=== PATIENT | male | born 1955 | race Caucasian/White ===

== ENCOUNTER 2024-06-27 09:23 | Outpatient (REF) | payer MEDICAID, SELFPAY ==
--- OUTSIDE RECORDS SUMMARY | 2024-06-27 10:52 | XMS_ITS | Encounter Summary ---
Author Organization [employer] Address [address] [facility] 7[address] [place] [address] Care Team Providers Care Audio/Visual Manager Name Role Phone Anson Asencio MD Primary Care Prov ider Encounter Details Date Type Department Care Team (Latest Contact Info) Description 06/13/2024 Travel Social History Tobacco Use Types Packs/Day Years Used Date Smoking Tobacco: Never Smokeless Tobacco: Never Alcohol Use Standard Drinks/Week Comments Yes 0 (1 standard drink = 0.6 oz pur e alcohol) beer social Depression Answer Date Recorded Patient Health Questionnaire-9 Score 0 05/22/2024 Patient Health Questionnaire-9 Score 0 05/22/2024 Last PHQ-9: Questionnaire Data Not on file 0 05/22/2024 Housing Stability Answer Date Recorded What is your housing situation today? I have desean almanza 05/22/[address] you li ve. Do you have problems with any of the following? None of the above 05/22/2024 Food Insecurity Answer Date Recorded Within the past 12 months, y ou worried that your food would run out before you got money to buy more: Never True 05/22/2024 Within the past 12 months,th e food you bought just didn't last and you didn't have enough money to get more: Never True Transportation Answer Date Recorded In the past 12 months, has l ack of transportation kept you from medical appts, meetings, work or from getting things needed for daily living? No 05/22/2024 Utilities Answer Date Recorded In the past 12 months, has t he electric, gas, oil or water company threatened to shut off services in your home? No 05/22/2024 Depression Answer Date Recorded Patient Health Questionnaire-2 Score 0 05/22/2024 Internet Access Answer Date Recorded Internet Access Q1 Yes 05/22/2024 Internet Access Q2 Not on file 05/22/2024 Sex and Gender Information Value Date Recorded Sex Assigned at Male 09/19/2023 10:57 AM EDT Legal Sex Female 10:50 AM EDT Gender Identity Male 09/19/2023 10:57 AM EDT Sexual Orientation Straight 09/19/2023 10 :57 AM EDT documented as of this encounter Plan of Treatment Upcoming Encounters Date Type Department Care Team (Late st Contact Info) Description 09/10/2024 8:30 AM EDT Telemedicine [facility] MED & PEDS [address] [place] [address] Anson Asencio MD [address] [place] [address] documented as of this encounter Visit Diagnoses Not on filedocumented in this encounter Additional Health Concerns Assessment Noted Time PHQ-9 Depression Total Score: 0 05/22/19 8:54 AM EST documented as of this encounter Care Teams Audio/Visual Manager Relationship Specialty Start Date End Date Anson Asencio MD [address] [place] [address] PCP - General Internal Medicine 05/22/24 documented as of this encounter
--- OUTSIDE RECORDS SUMMARY | 2024-06-27 10:52 | XMS_ITS | Encounter Summary ---
Author Organization [employer] Address [address] [facility] 7 [place] [address] Care Team Providers Care Network Coordinator Name Role Phone Anson Asencio MD Primary Care Prov ider Reason for Visit * Reason Onset Date Comments Chart Prep 06/12/2024 Encounter Details Date Type Department Care Team ([facility] st Contact Info) Description 06/12/2024 Telephone [facility] MED & PEDS [address] [place] [address] Anson Asencio MD [address] [place] [address] Chart Prep Social History Tobacco Use Types Packs/Day Years [...] AM EDT documented as of this encounter Miscellaneous Notes * Telephone Encounter - Pratima Durant [place] - 06/12/2024 4:06 PM EST Chart Prep Labs: pending Images: not applicable Vaccines due: yes Referrals: n/a Screenings: n/a Overdue care gaps: Oral Health, disability screening documented in this encounter Plan of Treatment Upcoming Encounters Date Type Department Care Team (Late st Contact Info) Description 09/10/2024 8:30 AM EDT Telemedicine [facility] MED & PEDS [address] [place] [address] Anson Asencio MD [address] [place] [address] documented as of this encounter Visit Diagnoses Not on filedocumented in this encounter Additional Health Concerns Assessment Noted Time PHQ-9 Depression Total Score: 0 05/22/19 8:54 AM EST documented as of this encounter Care Teams Network Coordinator Relationship Specialty Start Date End Date Anson Asencio MD [address] [place] [address] PCP - General Internal Medicine 05/22/24 documented as of this encounter
--- OUTSIDE RECORDS SUMMARY | 2024-06-27 10:52 | XMS_ITS | Encounter Summary ---
Author Organization [employer] Address [address] [facility] 7 [place] [address] Care Team Providers Care Assistant Manager Trainee Name Role Phone Anson Asencio MD Primary Care Prov ider Reason for Visit * Reason Comments Pre-visit Planning SDOH was completed o n 05/22/2024 Encounter Details Date Type Department Care Team ([facility] st Contact Info) Description 06/06/2024 Patient Outreach [facility] CH[facility] MED & PEDS [address] [place], [place] [phone] Anson Asencio MD [address] [place] [address] Pre-visit Planning (SDOH was completed on 05/22/2024) Social History Tobacco Use Types Packs/Day Years [...] AM EDT documented as of this encounter Progress Notes * Stephanie To - 06/06/2024 11:28 AM EST CC Stephanie Vazquez placed successful outbound call to patient for pre-visit planning. Patient name and confirmed. Patient confirms appt date and time, and has transportation arrangements. Biggest concern for appointment at this time is patient experiencing chest pains. Appropriate screenings completed in anticipation of appointment. documented in this encounter Plan of Treatment Upcoming Encounters Date Type Department Care Team ([facility] st Contact Info) Description 09/10/2024 8:30 AM EDT Telemedicine [facility] MED & PEDS [address] [place] [address] Anson Asencio MD [address] [place] [address] documented as of this encounter Visit Diagnoses Not on filedocumented in this encounter Additional Health Concerns Assessment Noted Time PHQ-9 Depression Total Score: 0 05/22/19 25 8:54 AM EST documented as of this encounter Care Teams Assistant Manager Trainee Relationship Specialty Start Date End Date Anson Asencio MD [address] [place] [address] PCP - General Internal Medicine 05/22/24 documented as of this encounter
--- OUTSIDE RECORDS SUMMARY | 2024-06-27 10:52 | XMS_ITS | Clinical Summary ---
Author Organization [facility] Address [address] [place] [address] Care Team Providers Care Hvac Designer Name Role Phone Richa Garcia Primary Care Provider [phone] Source Comments PLEASE NOTE, if this patient is a minor, it may be UNLAWFUL to discuss sensitive information that is contained in these records (such as FAMILY PLANNING, MENTAL HEALTH or SUBSTANCE ABUSE) with the minor patient's parent or other person without the patient's specific authorization.[facility] Social History Tobacco Use Types Packs/Day Years Used Date Smoking Tobacco: Never Assessed Sex and Gender Information Value Date Recorded Sex Assigned at Not on file Legal Sex Male 12:18 PM PDT Gender Identity Not on file Sexual Orientation Not on file Plan of Treatment Upcoming Encounters Date Type Department Care Team (Late st Contact Info) Description 08/15/2024 1:40 PM EDT Office Visit [facility] [address] [place] [phone] Dajuan Montiel PA-C [address] [facility] [place] [address] Health Maintenance Due Date Last Done Comments Diabetes Screening 1955 Hepatitis C Screening 1955 Lipid Screening 1955 Tobacco Screening 1955 Hypertension Screening (#1) 10/03/1973 Imm-DTaP/Tdap/Td (1 - Tdap) 10/03/1974 CT Colonography 10/03/2000 Colonoscopy 10/03/2000 Colorectal Cancer Screening 10/03/2000 FIT/gFOBT 10/03/2000 Fecal DNA 10/03/2000 Flexible Sigmoidoscopy 10/03/2000 Imm-Pneumococcal 65+ (1 of 1 - PCV) 10/03/2005 Imm-Zoster, Recombinant (1 of 2) 10/03/2005 Abdominal Aortic Aneurysm Screening 10/03/2020 Falls Prevention 10/03/2020 [id number]-01 ( season) 2024 Imm-Influenza (#1) 2024 Alcohol and Drug Screen 05/02/2024 Depression Annual Screen 05/02/2024 Insurance [place] Care Teams Hvac Designer Relationship Specialty Start Date End Date Richa Garcia PA [address] [place] [address] PCP - General Primary Care 05/17/24
--- OUTSIDE RECORDS SUMMARY | 2024-06-27 10:52 | XMS_ITS | Clinical Summary ---
Author Organization [employer] Address [address] [facility] [address] [place] [address] Care Team Providers Care Pattern Illustrator Name Role Phone Anson Asencio MD Primary Care Prov ider Allergies No known active allergies Medications Blood Pressure kit 1 kit Once per day. 1 kit 05/22/2024 Active cloNIDine (Catapres) 0.1 MG tablet Take 0.1 mg by mouth 2 times daily. Active NIFEdipine CC (Adalat CC) 60 MG 24 hr tablet Take 60 mg by mouth before breakfast. Do not crush, chew, or split. Active aspirin 81 MG EC tablet Take 81 mg by mouth Once per day. Active olmesartan-hydro CHLOROthiazide (BENIcar HCT) 40-12.5 MG tablet Take 1 tablet by mouth Once per day. Active Active Problems Problem Noted Date Diagnosed Date Atypical chest pain 06/13/2024 Assessment & Plan (06/13/2024 12:54 PM EST): Patient refers has been complaining of chest pain episode for more than 2 years, has been evaluated by cardiology before without any major findings, EKG performed today remarkable for sinus bradycardia, will order a stress test Encounter for medical examination to establish c are 05/22/2024 Assessment & Plan (05/22/2024 9:20 AM EST): Last pcp follow up >2 year Er visit in the past year: hypertension x2 Hospitalization: hypertension admitted x2 day on September,hx: hypertension, palpitation Pshx: appendectomy 1969 All: - Meds: clonidine 0.1mg BID, nifedipine 60mg, olmesartan/hydrochlorothiazide 40/12.5mg, gbs33ip Screening for colon cancer 05/22/2024 Assessment & Plan (05/22/2024 9:25 AM EST): Will send cologuard risk vs benefits discussed Primary hypertension 05/22/2024 Assessment & Plan (06/13/2024 11:04 AM EST): Controlled, keep low sodium diet and exercise as tolerated, keep bp log, will send new bp machine, follow up in 3 months Assessment & Plan (05/22/2024 9:27 AM EST): Will order bp machine, continue current treatment, low sodium diet encouraged, follow up in june Encounters Date Type Department Care Team Description 06/13/2024 10:30 AM EST Office Visit [facility] MED & PEDS [address] [place] [address] Anson Asencio MD Primary hypertension (Primary Dx); Encounter for immunization; Atypical chest pain 06/13/2024 Travel 06/12/2024 Telephone [facility] MED & PEDS [address] [place] [address] Anson Asencio MD Chart Prep 06/06/2024 Patient Outreach [facility] MED & PEDS [address] [place] [address] Anson Asencio MD Pre-visit Planning (SDOH was completed on 05/22/2024) 05/22/2024 9:00 AM EST Telemedicine [facility] MED & PEDS [address] [place] [address] Anson Asencio MD Encounter for medical examination to establish care (Primary Dx); Screening for colon cancer; Primary hypertension 05/22/2024 Travel 04/18/2024 Telephone [facility] MEDICINE [address] [place] [address] Anson Asencio MD New pt appt 03/28/2024 Telephone [facility] MED & PEDS [address] [place] [address] Elisa Richards MD new pt request from Last 3 Months Immunizations Name Administration Dates Next Due Influenza, seasonal, injectable, preservative fr ee 06/13/2024 Pneumococcal Conjugate PCV 20 06/13/2024 Tdap 06/13/2024 Family History Medical History Relation Name Comments Cancer Brother Hypotension Brother Hypertension Father Pneumonia Father Hypertension Mother Relation Name Status Comments Brother Father Mother Social History Tobacco Use Types Packs/Day Years Used Date Smoking Tobacco: Never Smokeless Tobacco: Never Tobacco Cessation:Counseling Given: Not Answered Alcohol Use Standard Drinks/Week Comments Yes 0 [...] Orientation Straight 09/19/2023 10 :57 AM EDT Last Filed Vital Signs Vital Sign Reading Time Taken Comments Blood Pressure 134/80 06/13/2024 10:39 AM EST Pulse 82 06/13/2024 10:39 AM EST Temperature 36.7 ??C (98.1 ??F) 06/13/2024 1 0:39 AM EST Respiratory Rate 16 06/13/2024 10:3 9 AM EST Oxygen Saturation - - Inhaled Oxygen Concentration - - Weight 83.4 kg (183 lb 12.8 oz) 025 10:39 AM EST Height 172.7 cm (5' 8 ) 06/13/2024 10:3 9 AM EST Body Mass Index 27.95 06/13/2024 10:39 AM EST Plan of Treatment Upcoming Encounters Date Type Department Care Team (Late st Contact Info) Description 09/10/2024 8:30 AM EDT Telemedicine [facility] CHC MED & PEDS [address] [place], [place] [phone] Anson Asencio MD [address] [place], [place] [phone] Health Maintenance Due Date Last Done Comments CT Colonography 1955 Colonoscopy 1955 Dental Oral Exam 1955 Dental Prophylaxis 1955 Dental X-Ray: Bitewings 1955 Dental X-Ray: Full Mouth 1955 FIT 1955 FOBT 1955 Lipid Panel 1955 Sigmoidoscopy 1955 Hepatitis C Screening 10/03/1973 Zoster Vaccines (1 of 2) 10/03/2005 COVID-19 Vaccine (2023-2 5 season) 2024 Alcohol/Substance Use Screening 05/22/2025 05/22/2024 Depression Screening 05/22/2025 05/22/2024, 05/22/2024 SDOH Screening 05/22/2025 05/22/2024 Tobacco Screening 05/22/2025 05/22/2024 Colorectal Cancer Screening 06/06/2027 FIT DNA/Cologuard 06/06/2027 06/06/2024 RSV Patients and Patients Aged 60 years or older (1 - 1-dose 75+ series) 10/03/2030 DTaP/Tdap/Td Vaccines (2 - T d or Tdap) 06/13/2034 06/13/2024 Influenza Vaccine Completed 06/13/2024 Pneumococcal Vaccine: 50+ Years Completed 06/13/2024 HIB Vaccines Aged Out No longer eligi ble based on patient's age to complete this topic HPV Vaccines Aged Out No longer eligi ble based on patient's age to complete this topic Hepatitis A Vaccines Aged Out No long er eligible based on patient's age to complete this topic Hepatitis B Vaccines Aged Out No long er eligible based on patient's age to complete this topic IPV Vaccines Aged Out No longer eligi ble based on patient's age to complete this topic Meningococcal Vaccine Aged Out No dallin jarred eligible based on patient's age to complete this topic RSV under 20 months Aged Out No longe r eligible based on patient's age to complete this topic Rotavirus Vaccines Aged Out No longer eligible based on patient's age to complete this topic Procedures Procedure Name Priority Date/Time Associated Diagnosis Comments ECG 12-LEAD Routine 06/13/2024 12:56 PM EST Atypical chest pain LAB COLOGUARD?? COLON CANCER SCREEN Routine 06/06/2024 10:00 AM EST Screening for colon cancer from Last 3 Months Results * ECG 12 lead (06/13/2024 12:56 PM EST) Narrative Anson Asencio MD - 06/13/2024 12:56 PM EST Sinus bradycardia HR: 52 UT: 201 Qtc: 396 us Anson Roy MD ECG ORDERABLES Fi nal Result * Cologuard?? colon cancer screening (06/06/2024 10:00 AM EST) Cologuard Result Negative Negative 06/15/19 25 7:19 PM EST [facility] (CLIA #:[id number]) Comment: NEGATIVE TEST RESULT. A negative Cologuard result indicates a low likelihood that a colorectal cancer (CRC) or advanced adenoma (adenomatous polyps with more advanced pre-malignant features) ??is present. The chance that a person with a negative Cologuard test has a colorectal cancer is less than 1 in 1500 (negative predictive value >99.9%) or has an ??advanced adenoma is less than ??5.3% (negative predictive value 94.7%). These data are based on a prospective cross-sectional study of 10,000 individuals at average risk for colorectal cancer who were screened with both Cologuard and colonoscopy. (Lyn Nuñez, N Engl J Med 2014;370(14):1286- 1297) The normal value (reference range) for this assay is negative. COLOGUARD RE-SCREENING RECOMMENDATION: Periodic colorectal cancer screening is an important part of preventive healthcare for asymptomatic individuals at average risk for colorectal cancer. ??Following a negative Cologuard result, the [place] [employer] Society and U.S. Multi-Society Task Force screening guidelines recommend a Cologuard re-screening interval of 3 years. References: [place] [employer] Guideline for Colorectal Cancer Screening: https://www.cancer.org/cancer/ahhaw-yzbjqj-sbiwsb/phjwanyvu-sskixjjpq-nljeivn/ac s-rec ommendations.html.; Andres DK, Urban LOPEZ, Fransisco AragonK, Colorectal Cancer Screening: Recommendations for Physicians and Patients from the U.S. Multi-Society Task Force on Colorectal Cancer Screening , Am J Gastroenterology 2017; 112:6501-5243. TEST DESCRIPTION: Composite algorithmic analysis of stool DNA-biomarkers with hemoglobin immunoassay. ?? Quantitative values of individual biomarkers are not reportable and are not associated with individual biomarker result reference ranges. Cologuard is intended for colorectal cancer screening of adults of either sex, 45 years or older, who are at average-risk for colorectal cancer (CRC). Cologuard has been approved for use by the U.S. FDA. The performance of Cologuard was established in a cross sectional study of average-risk adults aged 50-84. Cologuard performance in patients ages 45 to 49 years was estimated by sub-group analysis of near-age groups. Colonoscopies performed for a positive result may find as the most clinically significant lesion: colorectal cancer [4.0%], advanced adenoma (including sessile serrated polyps greater than or equal to 1cm diameter) [20%] or non- advanced adenoma [31%]; or no colorectal neoplasia [45%]. These estimates are derived from a prospective cross-sectional screening study of 10,000 individuals at average risk for colorectal cancer who were screened with both Cologuard and colonoscopy. (Imperiale T. et al, N Engl J Med 2014;370(14):0744-7963.) Cologuard may produce a false negative or false positive result (no colorectal cancer or precancerous polyp present at colonoscopy follow up). A negative Cologuard test result does not guarantee the absence of CRC or advanced adenoma (pre-cancer). The current Cologuard screening interval is every 3 years. ([place] [employer] and U.S. Multi-Society Task Force). Cologuard performance data in a 10,000 patient pivotal study using colonoscopy as the reference method can be accessed at the following location: www.[employer].com/results. Additional description of the Cologuard test process, warnings and precautions can be found at www.ThinkGridoguard.com. Stool specimen (specimen) 06/06/2024 10:00 AM EST 06/07/2024 2:04 PM EST Anson Roy MD LAB MOLECULAR DIAG NOSTICS ORDERABLES Final Result [facility] (CLIA #:[id number]) [address] [place] [address], from Last 3 Months Insurance [facility] FULL DENTAL - [facility] FULL (MEDICAID) [place] ADULT Care Teams Pattern Illustrator Relationship Specialty Start Date End Date Anson Asencio MD [address] [place] [address] PCP - General Internal Medicine 05/22/24
--- OUTSIDE RECORDS SUMMARY | 2024-06-27 10:52 | XMS_ITS | Encounter Summary ---
Author Organization [employer] Address [address] [place] [address] [address] [place] [address] Care Team Providers Care Fixture Repairer Fabricator Name Role Phone Anson Asencio MD Primary Care Prov ider Reason for Referral * Imaging (Routine) - Authorized Specialty Diagnoses / Procedures Referred By Contac t Referred To Contact Diagnoses Atypical chest pain Procedures Stress test with myocardial perfusion Anson Asencio MD [address] [place] [address] Phone: tel: fax: [address] Phone: tel: fax: Referral ID Status Reason Start Date Expiration Date V isits Requested Visits Authorized [id number] Authorized 06/13/2024 06/13/2025 3 3 Encounter Details Date Type Department Care Team (Late st Contact Info) Description 06/13/2024 10:30 AM EST Office Visit [facility] [address] [place] [address] Anson Asencio MD [address] [place] [address] Primary hypertension (Primary Dx); Encounter for immunization; Atypical chest pain Social History Tobacco Use Types Packs/Day Years [...] AM EDT documented as of this encounter Last Filed Vital Signs Vital Sign Reading [...] Mass Index 27.95 06/13/2024 10:39 AM EST documented in this encounter Progress Notes * Anson Roy MD - 06/13/2024 10:30 AM EST Subjective Patient ID: Eriberto Mullins is a 68 y.o. adult who presents for No chief complaint on file.. Hypertension This is a chronic problem. Pertinent negatives include no chest pain, headaches, palpitations, peripheral edema or shortness of breath. Review of Systems Respiratory: Negative for shortness of breath. Cardiovascular: Negative for chest pain and palpitations. Neurological: Negative for headaches. Objective Physical Exam Constitutional: Appearance: Normal appearance. HENT: Right Ear: Tympanic membrane, ear canal and external ear normal. There is no impacted cerumen. Left Ear: Tympanic membrane, ear canal and external ear normal. There is no impacted cerumen. Cardiovascular: Rate and Rhythm: Normal rate and regular rhythm. Heart sounds: No murmur heard. Pulmonary: Effort: Pulmonary effort is normal. No respiratory distress. Breath sounds: No stridor. No wheezing or rhonchi. Abdominal: General: Abdomen is flat. There is no distension. Palpations: There is no mass. Tenderness: There is no abdominal tenderness. There is no guarding or rebound. Hernia: No hernia is present. Musculoskeletal: General: No swelling or tenderness. Normal range of motion. Cervical back: Normal range of motion. No rigidity or tenderness. Lymphadenopathy: Cervical: No cervical adenopathy. Skin: General: Skin is warm. Coloration: Skin is not jaundiced or pale. Neurological: General: No focal deficit present. Mental Status: He is alert and oriented to person, place, and time. Psychiatric: Mood and Affect: Mood normal. Behavior: Behavior normal. Assessment/Plan Problem List Items Addressed This Visit Primary hypertension - Primary Controlled, keep low sodium diet and exercise as tolerated, keep bp log, will send new bp machine, follow up in 3 months Relevant Orders CBC auto differential Comprehensive Metabolic Panel Lipid Panel, Standard TSH W/Reflex to FT4 Hemoglobin A1c Hepatitis C Antibody with Reflex to HCV, RNA, Quantitative, Real-Time PCR HIV-1/2 Antigen and Antibodies, Fourth Generation, with Reflexes Atypical chest pain Patient refers has been complaining of chest pain episode for more than 2 years, has been evaluatedby cardiology before without any major findings, EKG performed today remarkable for sinus bradycardia, will order a stress test Other Visit Diagnoses Encounter for immunization Relevant Orders FLU VACCINE TRIVALENT (Fluarix) 6 mo + (Completed) PCV-20 VACCINE 6 wks + (Completed) TDAP VACCINE 7 yrs + (Completed) documented in this encounter Miscellaneous Notes * Assessment & Plan Note - Anson Roy MD - 06/13/2024 12:54 PM ESTAssociated Problem(s): Atypical chest pain Patient refers has been complaining of chest pain episode for more than 2 years, has been evaluatedby cardiology before without any major findings, EKG performed today remarkable for sinus bradycardia, will order a stress test * Assessment & Plan Note - Anson Roy MD - 06/13/2024 11:04 AM ESTAssociated Problem(s): Primary hypertension Controlled, keep low sodium diet and exercise as tolerated, keep bp log, will send new bp machine, follow up in 3 months documented in this encounter Plan of Treatment Upcoming Encounters Date Type Department Care Team (Late st Contact Info) Description 09/10/2024 8:30 AM EDT Telemedicine [facility] [address] [place] [address] Anson Asencio MD [address] [place] [address] Scheduled Orders Name Type Priority Associated Diagnoses Orde r Schedule CBC auto differential Lab Routine Primary hypertension Expected: 06/13/2024 (Approximate), Expires: 06/13/2025 Comprehensive Metabolic Panel Lab Routine Primary hypertension Expected: 06/13/2024 (Approximate), Expires: 06/13/2025 Lipid Panel, Standard Lab Routine Primary hypertension Expected: 06/13/2024 (Approximate), Expires: 06/13/2025 TSH W/Reflex to FT4 Lab Routine Primary hypertension Expected: 06/13/2024 (Approximate), Expires: 06/13/2025 Hemoglobin A1c Lab Routine Primary hypertension Expected: 06/13/2024 (Approximate), Expires: 06/13/2025 Hepatitis C Antibody with Reflex to HCV, RNA, Quantitative, Real-Time PCR Lab Routine Primary hypertension Expected: 06/13/2024, Expires: 06/13/2025 HIV-1/2 Antigen and Antibodies, Fourth Generation, with Reflexes Lab Routine Primary hypertension Expected: 06/13/2024 (Approximate), Expires: 06/13/2025 documented as of this encounter Procedures Procedure Name Priority Date/Time Associated Diagnosis Comments ECG 12-LEAD Routine 06/13/2024 12:56 PM EST Atypical chest pain documented in this encounter Results * ECG 12 lead (06/13/2024 12:56 PM EST) Narrative Anson Asencio MD - 06/13/2024 12:56 PM EST Sinus bradycardia HR: 52 CT: 201 Qtc: 396 us Anson Roy MD ECG ORDERABLES Fi nal Result documented in this encounter Visit Diagnoses Diagnosis Primary hypertension- Primary Unspecified essential hypertension Encounter for immunization Atypical chest pain Other chest pain documented in this encounter Additional Health Concerns Assessment Noted Time PHQ-9 Depression Total Score: 0 05/22/19 8:54 AM EST documented as of this encounter Care Teams Fixture Repairer Fabricator Relationship Specialty Start Date End Date Anson Asencio MD [address] [place] [phone] PCP - General Internal Medicine 05/22/24 documented as of this encounter
[2024-06-27 14:25] LABS: MANUAL DIFF FLAG NO
[2024-06-27 14:28] LABS: Basophils Percent Auto 0.7 % (0-2); Eosinophils Absolute Auto 0.1 X10*3/uL (0.0-0.4); Hematocrit 40.5 % (42.0-52.0); Hemoglobin 13.6 g/dl (14.0-18.0); Imm Gran Abs Auto 0.01 X10*3/uL (0.00-0.03); Imm Gran Pct Auto 0.2 % (0.0-0.4); Lymphocytes Percent Auto 44.6 % (20-40); Mean Corpuscular HGB Conc 33.6 g/dl (31.0-36.0); Mean Corpuscular Hemoglobin 31.3 pg (27.0-33.0); Mean Corpuscular Volume 93.3 fL (80.0-98.0); Mean Platelet Volume 10.1 fL (9.4-12.4); Monocytes Absolute Auto 0.3 X10*3/uL (0.1-1.2); Monocytes Percent Auto 7.3 % (2-11); Neutrophils Percent Auto 45.2 % (45-73); Platelet Count 214 X10*3/uL (160-400); Red Blood Count 4.34 X10*6/uL (4.60-5.80); Red Cell Distribution Width 11.6 % (11.0-16.0); White Blood Count 4.5 X10*3/uL (4.8-10.8)
[2024-06-27 14:40] LABS: Estimated Average Glucose 111 mg/dL; Hemoglobin A1c % 5.5 % (<6.0)
[2024-06-27 14:52] LABS: Alanine Aminotransferase 21 U/L (0-40); Albumin Level 4.3 g/dL (3.5-5.0); Alkaline Phosphatase 58 U/L (39-117); Anion Gap 11 (12-20); Aspartate Amino Transferase 30 U/L (5-37); Bilirubin Total 0.8 mg/dL (0.0-1.0); Blood Urea Nitrogen 20 mg/dL (9-16); Calcium 9.5 mg/dL (8.4-10.2); Carbon Dioxide 28 mmol/L (22-29); Chloride 105 mmol/L (96-108); Cholesterol 246 mg/dL (<200); Estimated Glomerular Filt Rate > 60; Glucose Random 93 mg/dL (60-115); HDL Cholesterol 54 mg/dL (>40); LDL Cholesterol Calculated 158 mg/dL (<100); Potassium 3.9 mmol/L (3.3-5.1); Sodium 140 mmol/L (135-145); Total Protein 7.3 g/dL (6.5-8.0); Triglycerides 171 mg/dL (<150)
[2024-06-27 15:07] LABS: TSH reflex Free T4 2.77 uIU/mL (0.32-4.0)
[2024-06-28 08:39] LABS: HIV AB/AG Nonreactive (Nonreactive); HIV Num 1 0.06 S/CO (0.00-0.99); ~Hepatitis C Antibody Nonreactive (Nonreactive)
== END 2024-06-27 09:24 | disposition home or self-care (01) ==
LOC: HO.CHCLDS 09:23
PROVIDERS: Visit Provider Internal Medicine
DX: I10 Essential (primary) hypertension (principal); Z11.59 Encounter for screening for other viral diseases
CPT/HCPCS: 36415; 80053; 80061; 83036; 84443; 85025; 86803; 87389

== ENCOUNTER 2024-09-12 15:29 | Outpatient (REF) | payer MEDICAID, SELFPAY ==
--- OUTSIDE RECORDS SUMMARY | 2024-09-12 15:31 | XMS_ITS | Clinical Summary ---
Author Organization [employer] Address [address] [facility] [address] [place] [address] Care Team Providers Care Dynamics Ax Technical Architect Name Role Phone Anson Asencio MD Primary Care Prov ider Allergies No known active allergies Medications Blood Pressure kit 1 kit Once per day. 1 kit 5 Active aspirin 81 MG EC tablet Take 1 tablet (81 mg) by mouth Once per day. 90 tablet 3 5 07/13/19 26 Active cloNIDine (Catapres) 0.1 MG tablet Take 1 tablet (0.1 mg) by mouth 2 times daily. 180 tablet 3 5 07/13/19 26 Active NIFEdipine CC (Adalat CC) 60 MG 24 hr tablet Take 1 tablet (60 mg) by mouth before breakfast. Do not crush, chew, or split. 90 tablet 3 5 07/13/19 26 Active olmesartan-hydr oCHLOROthiazide (BENIcar HCT) 40-12.5 MG tablet Take 1 tablet by mouth Once per day. 90 tablet 3 5 07/13/19 26 Active Ketotifen Fumarate 0.035 % solution Administer 1 drop into affected eye(s) 3 times daily. 10 mL 3 5 Active polyvinyl alcohol (Liquifilm Tears) 1.4 % ophthalmic solutionIndicat ions:Dry eyes, bilateral Administer 1 drop into both eyes if needed for dry eyes. 15 mL 5 5 Active tadalafil (Cialis) 10 MG tablet Take 1 tablet (10 mg) by mouth if needed each day for erectile dysfunction. 30 tablet 1 5 11/11/19 25 Active sulfamethoxazol e-trimethoprim (Bactrim DS) 800-160 MG tabletIndicatio ns:Urinary frequency,Noctu ramya Take 1 tablet by mouth 2 times daily for 10 days. 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 09/11/2024 Assessment & Plan (09/11/2024 9:06 AM EDT): Will start on cialis, risk vs benefits discussed, call back if not working or getting side effects Atypical chest pain 06/13/2024 Assessment & Plan [...] clonidine 0.1mg BID, nifedipine 60mg, olmesartan/hydrochlorothiazide 40/12.5mg, [id number] Screening for colon cancer 05/22/2024 Assessment & Plan (05/22/2024 9:25 AM EST): Will send cologuard risk vs benefits discussed Primary hypertension 05/22/2024 Assessment & Plan (09/11/2024 9:05 AM EDT): Controlled, keep low sodium diet and exercise as tolerated, keep bp log, follow up in 3 months Assessment & Plan (06/13/2024 11:04 AM EST): Controlled, keep low sodium diet and exercise as tolerated, keep bp log, will send new bp machine, follow up in 3 months Assessment & Plan (05/22/2024 9:27 AM EST): Will order bp machine, continue current treatment, low sodium diet encouraged, follow up in june Encounters Date Type Department Care Team Description 09/12/2024 2:20 PM EDT Office Visit [facility] [address] [place] [address] Elisa Richards MD Urinary frequency (Primary Dx); Nocturia 09/12/2024 Travel 09/11/2024 8:30 AM EDT Telemedicine [facility] [address] [place] [address] Anson Asencio MD Primary hypertension (Primary Dx); Combined arterial insufficiency and corporo-venous occlusive erectile dysfunction 09/11/[address] [address] Anson Asencio MD Nurse Triage 09/11/2024 Travel 09/10/2024 Travel 09/06/2024 1:00 PM EDT Office Visit [facility] [address] [place] [address] Tarka, Nanette, OD Hypermetropia, bilateral (Primary Dx); Dry eyes, bilateral; Pterygium of left eye; Combined forms of age-related cataract of both eyes 09/06/2024 Travel 08/31/2024 9:40 AM EDT Office Visit [facility] [address] [place] [address] Yaneli Cole MD Blurred vision, bilateral (Primary Dx); Central pterygium of left eye 08/31/2024 Travel 08/02/2024 Telephone [facility] [address] [place] [address] Anson Asencio MD Referral 08/01/2024 Telephone [facility] [address] [place] [address] Anson Asencio MD 08/01/2024 Travel 07/31/2024 Telephone [facility] [address] [place] [address] Anson Asencio MD chart prep 07/18/2024 Orders Only [facility] [address] [place] [address] Anson Asencio MD 07/10/2024 Refill [facility] [address] [place] [address] Anson Asencio MD from Last 3 Months Immunizations Immunization Administration Dates Next Due Influenza, seasonal, injectable, preservative fr ee 06/13/2024 Pneumococcal Conjugate PCV 20 06/13/2024 Tdap 06/13/2024 Zoster, Recombinant 08/31/2024,06/27/2024 Family History Medical History Relation Name Comments [...] Sign Reading Time Taken Comments Blood Pressure 143/86 09/12/2024 2:08 PM EDT Pulse 68 09/12/2024 2:08 PM EDT Temperature 36.8 ??C (98.3 ??F) 09/12/2024 2:08 PM ED T Respiratory Rate 16 09/12/2024 2:08 PM EDT Oxygen Saturation 98% 09/12/2024 2:08 PM EDT Inhaled Oxygen Concentration - - Weight 87.1 kg (192 lb) 09/12/2024 2:08 PM EDT Height 172.7 cm (5' 8 ) 09/12/2024 2:08 PM EDT Body Mass Index 29.19 09/12/2024 2:08 PM EDT Plan of Treatment Upcoming Encounters Date Type Department Care Team (Late st Contact Info) Description 12/12/2024 9:30 AM EDT Telemedicine [facility] [address] [place] [address] Anson Asencio MD [address] [place] [address] Health Maintenance Due Date Last Done Comments CT Colonography 1955 Colonoscopy 1955 Dental Oral Exam 1955 Dental Prophylaxis 1955 Dental X-Ray: Bitewings 1955 Dental X-Ray: Full Mouth 1955 FIT 1955 FOBT 1955 Sigmoidoscopy 1955 COVID-19 Vaccine (2023-2 5 season) 2024 Alcohol/Substance Use Screening 05/22/2025 05/22/2024 Depression Screening 05/22/2025 05/22/2024, 05/22/2024 SDOH Screening 05/22/2025 05/22/2024 Tobacco Screening 09/12/2025 09/12/2024 Colorectal Cancer Screening 06/06/2027 FIT DNA/Cologuard 06/06/2027 06/06/2024 Lipid Panel 06/27/2029 06/27/2024 RSV Patients and Patients Aged 60 years or older (1 - 1-dose 75+ series) 10/03/2030 DTaP/Tdap/Td Vaccines (2 - T d or Tdap) 06/13/2034 06/13/2024 Influenza Vaccine Completed 06/13/2024 Pneumococcal Vaccine: 50+ Years Completed 06/13/2024 Hepatitis C Screening Completed 06/27/2024 Zoster Vaccines Completed 08/31/2024, 06/27/2024 HIB Vaccines Aged Out No longer eligi [...] patient's age to complete this topic Meningococcal B Vaccine Aged Out No l onger eligible based on patient's age to complete [...] Procedure Name Priority Date/Time Associated Diagnosis Comments POCT URINALYSIS DIPSTICK Routine 09/12/2024 2:43 PM EDT Urinary frequency HIV 1/2 ANTIGEN/ANTIBODY, FOURTH GENERATION W/RFL Routine 06/27/2024 9:33 AM EST Primary hypertension HEPATITIS C AB W/REFL TO HCV RNA, QN, PCR Routine 06/27/2024 9:33 AM EST Primary hypertension HEMOGLOBIN A1C Routine 06/27/2024 9:33 AM EST Primary hypertension TSH W/REFLEX TO FT4 Routine 06/27/2024 9 :33 AM EST Primary hypertension LIPID PANEL, STANDARD Routine 06/27/2024 9:33 AM EST Primary hypertension COMPREHENSIVE METABOLIC PANEL Routine 06/27/2024 9:33 AM EST Primary hypertension CBC WITH AUTO DIFFERENTIAL Routine 06/27/2024 9:33 AM EST Primary hypertension LAB COLOGUARD?? COLON CANCER SCREEN Routine 06/06/2024 10:00 AM EST Screening for colon cancer from Last 3 Months or Most Recently Relevant to Health Maintenance Results * POCT urinalysis dipstick manually resulted (09/12/2024 2:43 PM EDT) Color, UA Yellow Clarity, UA Clear Glucose, UA Negative Bilirubin, UA Negative Ketones, UA Negative Spec Grav, UA 1.025 Blood, UA Negative Negative, None Detected pH, UA 6.0 Protein, UA Negative Urobilinogen, UA 0.2 Leukocytes, UA Negative Negative, Rare, Trace Nitrite, UA Negative Negative, None Detected Appearance, UA clear QC Media Lot # Comment:[id number] Lot# Expiration Date Comment:01/29/2025 Urine 09/12/2024 2:43 PM EDT us Elisa Richards MD POINT OF CARE TEST ENTER/ED IT ORDERABLES Final Result * TSH W/Reflex to FT4 (06/27/2024 9:33 AM EST) TSH reflex Free T4 2.77 0.32 - 4.0 uIU/mL [facility] Blood Venous blood specimen / Unknown 06/27/2024 9:33 AM EST 06/27/2024 2:18 PM EST us Anson Roy MD LAB BLOOD ORDERABL ES Final Result [facility] [address] [place] [address] [place] [phone] * (ABNORMAL) CBC auto differential (06/27/2024 9:33 AM EST) White Blood Count 4.5(L) 4.8 - 10.8 X10*3/uL [facility] Red Blood Count 4.34(L) 4.60 - 5.80 X10*6/uL [facility] Hemoglobin 13.6(L) 14.0 - 18.0 g/dl [facility] Hematocrit 40.5(L) 42.0 - 52.0 % [facility] Mean Corpuscular Volume 93.3 80.0 - 98.0 fL [facility] Mean Corpuscular Hemoglobin 31.3 27.0 - 33.0 pg [facility] Mean Corpuscular HGB Conc 33.6 31.0 - 36.0 g/dl [facility] Red Cell Distribution Width 11.6 11.0 - 16.0 % [facility] Platelet Count 214 160 - 400 X10*3/uL [facility] Mean Platelet Volume 10.1 9.4 - 12.4 fL [facility] Neutrophils Percent Auto 45.2 45 - 73 % [facility] Imm Gran Pct Auto 0.2 0.0 - 0.4 % [facility] Lymphocytes Percent Auto 44.6(H) 20 - 40 % [facility] Monocytes Percent Auto 7.3 2 - 11 % [facility] Eosinophils Percent Auto 2.0 0 - 4 % [facility] Basophils Percent Auto 0.7 0 - 2 % [facility] NRBC Pct Auto 0.0 0.0 - 0.2 /100WBC [facility] Neutrophils Absolute Auto 2.0 2.0 - 8.3 x10*3/uL [facility] Imm Gran Abs Auto 0.01 0.00 - 0.03 X10*3/uL [facility] Lymphocytes Absolute Auto 2.0 1.2 - 4.9 X10*3/uL [facility] Monocytes Absolute Auto 0.3 0.1 - 1.2 X10*3/uL [facility] Eosinophils Absolute Auto 0.1 0.0 - 0.4 X10*3/uL [facility] Basophils Absolute Auto 0.0 0.0 - 0.2 X10*3/uL [facility] NRBC Abs Auto 0.000 0.0 - 0.012 X10*3/uL [facility] Blood Venous blood specimen / Unknown 06/27/2024 9:33 AM EST 06/27/2024 2:18 PM EST Anson Roy MD LAB BLOOD ORDERABL ES Final Result Performing Organization Address [facility]/ZIP Co de Phone Number [facility] [address] [place] [phone] * Hepatitis C Antibody with Reflex to HCV, RNA, Quantitative, Real-Time PCR (06/27/2024 9:33 AM EST) Hepatitis C Antibody Nonreactive Nonreactive [facility] Comment:Antibodies to HCV no t detected; does not exclude early acuteHCV infection. Blood Venous blood specimen / Unknown 06/27/2024 9:33 AM EST 06/27/2024 2:18 PM EST Anson Roy MD LAB BLOOD ORDERABL ES Final Result Performing Organization Address [facility] Co de Phone Number [facility] [address] [place] [phone] * HIV-1/2 Antigen and Antibodies, Fourth Generation, with Reflexes (06/27/2024 9:33 AM EST) HIV AB/AG Nonreactive Nonreactive [facility] Comment:HIV-1 p24 Ag and/or HIV-1/HIV-2 Ab not detected.A test result that is nonreactive does not exclude thepossibility of exposure to or infection with HIV-1 and/orHIV-2. Nonreactive results in this assay for individualswith prior exposure to HIV-1 and/or HIV-2 may be due toantigen and antibody levels that are below the limit ofdetection of this assay.The [employer] HIV Ag/Ab Combo assay result andsupplemental assay results should be interpreted inconjunction with the patient's clinical presentation,history and other laboratory results. If the results areinconsistent with clinical evidence, additional testing issuggested to confirm the result. Blood Venous blood specimen / Unknown 06/27/2024 9:33 AM EST 06/27/2024 2:18 PM EST Anson Roy MD LAB BLOOD ORDERABL ES Final Result Performing Organization Address [facility] Co de Phone Number [facility] [address] [place] [phone] * Hemoglobin A1c (06/27/2024 9:33 AM EST) Hemoglobin A1c 5.5 <6.0 % [facility] Comment:Hemoglobin A1C Refer ence Range Adults: 4.8 - 6.0 % Non diabetic: < 6.0 % Goal: < 7.0 %Additional Action Suggested: > 8.0 %Note: Hemoglobin A1c results are invalid for patients with abnormal amounts of HbF. Blood transfusions may impact the HbA1c concentration in the patient sample. Estimated Average Glucose 111 mg/dL [facility] Comment:eAG = Estimated ave rage glucose which is %A1C expressed asaverage glucose, using the formula of the W3W-KtctbczSkyalny Glucose study (ADAG), Diabetes Care, Vol.31,#8,Nov. 2007 Blood Venous blood specimen / Unknown 06/27/2024 9:33 AM EST 06/27/2024 2:18 PM EST Anson Roy MD LAB BLOOD ORDERABL ES Final Result Performing Organization Address [facility] Co de Phone Number [facility] [address] [place] [phone] * (ABNORMAL) Lipid Panel, Standard (06/27/2024 9:33 AM EST) Triglycerides 171(H) <150 mg/dL [facility] Comment:Desirable Triglyceri de: less than 150 mg/dLBorderline High Triglyceride 150-199 mg/dLHigh Triglyceride: 200-499 mg/dLVery High Triglyceride: greater than or equal to 5OO mg/dL Cholesterol 246(H) <200 mg/dL [facility] Comment:Desirable Cholestero l: less than 200 mg/dLBorderline High Cholesterol: 200-239 mg/dLHigh Cholesterol: greater than 239 mg/dL LDL Cholesterol Calculated 158(H) <100 mg/dL [facility] Comment:Desirable LDL: less than 100 mg/dLNear Optimal/Above Optimal LDL: 110- 129 mg/dLBorderline High LDL: 130-159 mg/dLHigh LDL: 160-189 mg/dLVery High LDL: greater than or equal to 190 mg/dL HDL Cholesterol 54 >40 mg/dL [facility] Comment:Desirable HDL: great er than 40 mg/dL Note: This HDL assay may give artificially low results in patients with liver disease. Blood Venous blood specimen / Unknown 06/27/2024 9:33 AM EST 06/27/2024 2:18 PM EST us Anson Roy MD LAB BLOOD ORDERABL ES Final Result [facility] [address] [place], [place] [phone] * (ABNORMAL) Comprehensive Metabolic Panel (06/27/2024 9:33 AM EST) Sodium 140 135 - 145 mmol/L [facility] Potassium 3.9 3.3 - 5.1 mmol/L [facility] Chloride 105 96 - 108 mmol/L [facility] Carbon Dioxide 28 22 - 29 mmol/L [facility] Anion Gap 11(L) 12 - 20 [facility] Urea Nitrogen (BUN) 20(H) 9 - 16 mg/dL [facility] Creatinine, Serum 1.03 0.5 - 1.4 mg/dL [facility] Estimated Glomerular Filt Rate >60 [facility] Comment:Chronic Kidney Disea se: Estimated GFR < 60 mL/min/1.17f4Yagtyo Kidney Disease: Estimated GFR < 15 mL/min/1.73m2 Glucose 93 60 - 115 mg/dL [facility] Calcium 9.5 8.4 - 10.2 mg/dL [facility] Bilirubin, Total 0.8 0.0 - 1.0 mg/dL [facility] Aspartate Amino Transferase 30 5 - 37 U/L [facility] Alanine Aminotransferase 21 0 - 40 U/L [facility] Total Protein 7.3 6.5 - 8.0 g/dL [facility] Albumin Level 4.3 3.5 - 5.0 g/dL [facility] Alkaline Phosphatase 58 39 - 117 U/L [facility] Blood Venous blood specimen / Unknown 06/27/2024 9:33 AM EST 06/27/2024 2:18 PM EST Anson oRy MD LAB BLOOD ORDERABL ES Final Result [facility] [address] [place] [phone] * Cologuard?? colon cancer screening (06/06/2024 10:00 AM EST) Cologuard Result Negative Negative 06/15/19 7:19 PM EST [facility] (CLIA #:[id number]) Comment: NEGATIVE TEST RESULT. A negative Cologuard [...] cancer. ??Following a negative Cologuard result, the [place] [employer] and U.S. Multi-Society Task Force screening guidelines recommend a Cologuard re-screening interval of 3 years. References: [place] [employer] Guideline for Colorectal Cancer Screening: https://www.cancer.org/cancer/dvmsv-bzfjyw-pxecqy/aicjknpxi-zncbogiwq-hhnttou/ac s-rec ommendations.html.; Andres DK, Urban LOPEZ, Fransisco AragonK, Colorectal Cancer Screening: Recommendations for Physicians and Patients from the U.S. Multi-Society Task Force on Colorectal Cancer Screening , Am J Gastroenterology 2017; 112:1699-9660. TEST DESCRIPTION: Composite algorithmic analysis of stool [...] colonoscopy. (Lyn Nuñez, N Engl J Med 2014;370(14):0449-5311.) Cologuard may produce a false negative or false positive result (no colorectal cancer or precancerous polyp present at colonoscopy follow up). A negative Cologuard test result does not guarantee the absence of CRC or advanced adenoma (pre-cancer). The current Cologuard screening interval is every 3 years. ([place] [employer] and U.S. Multi-Society Task Force). Cologuard performance data in a 10,000 patient pivotal study using colonoscopy as the reference method can be accessed at the following location: www.[employer]ito[employer]/results. Additional description of the Cologuard test process, warnings and precautions can be found at www.cologuard.com. Stool specimen (specimen) 06/06/2024 10:00 AM EST 06/07/2024 2:04 PM EST Anson Roy MD LAB MOLECULAR DIAG NOSTICS ORDERABLES Final Result [facility] (CLIA #:[id number]) [address] [place] [address], from Last 3 Months or Most Recently Relevant to Health Maintenance Insurance [facility] HSN FULL DENTAL - HSN FULL (MEDICAID) DENTAL-[facility] MEDICAID LIMITED ADULT Care Teams Dynamics Ax Technical Architect Relationship Specialty Start Date End Date Anson Asencio MD [address] [place] [phone] PCP - General Internal Medicine 05/22/24
--- OUTSIDE RECORDS SUMMARY | 2024-09-12 15:31 | XMS_ITS | Encounter Summary ---
Author Organization [employer] Address [address]t [place] [address] Care Team Providers Care Sales Associate Name Role Phone Anson Asencio MD Primary Care Prov ider Encounter Details Date Type Department Care Team (Late st Contact Info) Description 07/18/2024 Orders Only [facility] CHC MED & PEDS [address] [place], [place] [phone] Anson Asencio MD [address] [place] [address] Social History Tobacco Use Types Packs/Day Years [...] Info) Description 12/12/2024 9:30 AM EDT Telemedicine [facility] MED & PEDS [address] [place] [address] Anson Asencio MD [address] [place] [address] documented as of this encounter Visit Diagnoses Not on filedocumented in this encounter Additional Health Concerns Assessment Noted Time PHQ-9 Depression Total Score: 0 05/22/19 8:54 AM EST documented as of this encounter Care Teams Sales Associate Relationship Specialty Start Date End Date Anson Asencio MD [address] [place] [address] PCP - General Internal Medicine 05/22/24 documented as of this encounter
--- OUTSIDE RECORDS SUMMARY | 2024-09-12 15:32 | XMS_ITS | Encounter Summary ---
Author Organization [employer] Address [address] [facility] 7t [place] [address] Care Team Providers Care Electronic Typesetting Machine Operator Name Role Phone Anson Asencio MD Primary Care Prov ider Encounter Details Date Type Department Care Team (Latest Contact Info) Description 09/10/2024 Travel Social History Tobacco Use Types Packs/Day [...] Info) Description 12/12/2024 9:30 AM EDT Telemedicine [facility] MED & PEDS [address] [place] [address] Anson Asencio MD [address] [place] [address] documented as of this encounter Visit Diagnoses Not on filedocumented in this encounter Additional Health Concerns Assessment Noted Time PHQ-9 Depression Total Score: 0 05/22/19 8:54 AM EST documented as of this encounter Care Teams Electronic Typesetting Machine Operator Relationship Specialty Start Date End Date Anson Asencio MD [address] [place] [address] PCP - General Internal Medicine 05/22/24 documented as of this encounter
--- OUTSIDE RECORDS SUMMARY | 2024-09-12 15:32 | XMS_ITS | Encounter Summary ---
Author Organization [employer] Address [address] [place] [address] [place] [address] Care Team Providers Care Applications Coordinator Name Role Phone Anson Asencio MD Primary Care Prov ider Reason for Referral * Consultation (Routine) - Pending Review Specialty Diagnoses / Procedures Referred By Yg carrasquillo Referred To Contact Urology Diagnoses Urinary frequency Nocturia Elisa Richards MD [address] [place] [address] Phone: tel: fax: Referral ID Status Reason Start Date Expiration Date Visits Requested Visits Authorized [id number] Pending Review Specialty Services Required 09/12/2024 09/12/2025 1 1 Reason for Visit * Reason Comments Urinary Frequency Encounter Details Date Type Department Care Team ([facility] Contact Info) Description 09/12/2024 2:20 PM EDT Office Visit [facility] CHC MED & PEDS [address] [place] [address] Elisa Richards MD [address] [place] [address] Urinary frequency (Primary Dx); Nocturia Social History Tobacco Use Types Packs/Day Years [...] Mass Index 29.19 09/12/2024 2:08 PM EDT documented in this encounter Progress Notes * Elisa Richards MD - 09/12/2024 2:20 PM EDT SUBJECTIVE Eriberto Mullins is a 68 y.o. adult who presents for Urinary Frequency. Urinary Frequency This is a chronic problem. The current episode started more than 1 month ago. The problem occurs every urination. The problem has been unchanged. The pain is at a severity of 2/10. Associated symptoms include frequency. Pertinent negatives include no chills, discharge, flank pain, hematuria, hesitancy, nausea, possible , sweats, urgency or vomiting. There is no history of catheterization, kidney stones, recurrent UTIs, a single kidney, urinary stasis or a urological procedure. 6 months history of urinary frequency and nocturia. Patient wakes up about 3 times at night to urinate. Denies any burning sensation. Admits only some discomfort of the pelvic area. No reported fever or other constitutional symptoms. No nausea Exterol partner. No reported penile discharge. Patient Active Problem List Diagnosis Encounter for medical examination to establish care Screening for colon cancer Primary hypertension Atypical chest pain Combined arterial insufficiency and corporo-venous occlusive erectile dysfunction No Known Allergies Current Outpatient Medications on File Prior to Visit Medication Sig Dispense Refill aspirin 81 MG EC tablet Take 1 tablet (81 mg) by mouth Once per day. 90 tablet 3 Blood Pressure kit 1 kit Once per day. 1 kit 0 cloNIDine (Catapres) 0.1 MG tablet Take 1 tablet (0.1 mg) by mouth 2 times daily. 180 tablet 3 Ketotifen Fumarate 0.035 % solution Administer 1 drop into affected eye(s) 3 times daily. 10 mL 3 NIFEdipine CC (Adalat CC) 60 MG 24 hr tablet Take 1 tablet (60 mg) by mouth before breakfast. Do not crush, chew, or split. 90 tablet 3 olmesartan-hydroCHLOROthiazide (BENIcar HCT) 40-12.5 MG tablet Take 1 tablet by mouth Once per day.90 tablet 3 polyvinyl alcohol (Liquifilm Tears) 1.4 % ophthalmic solution Administer 1 drop into both eyes if needed for dry eyes. 15 mL 5 tadalafil (Cialis) 10 MG tablet Take 1 tablet (10 mg) by mouth if needed each day for erectile dysfunction. 30 tablet 1 No current facility-administered medications on file prior to visit. Review of Systems Constitutional: Negative for chills, diaphoresis and fatigue. Gastrointestinal: Negative for nausea and vomiting. Genitourinary: Positive for frequency. Negative for flank pain, hematuria, hesitancy and urgency. OBJECTIVE Vitals: 09/12/24 1408 BP: (!) 143/86 BP Location: Left arm Patient Position: Sitting BP Cuff Size: Adult Pulse: 68 Resp: 16 Temp: 98.3 ??F (36.8 ??C) TempSrc: Oral SpO2: 98% Weight: 192 lb (87.1 kg) Height: 5' 8 (1.727 m) Physical Exam Constitutional: General: He is not in acute distress. Appearance: Normal appearance. He is not ill-appearing, toxic-appearing or diaphoretic. Pulmonary: Effort: Pulmonary effort is normal. Abdominal: General: There is no distension. Palpations: Abdomen is soft. There is no mass. Tenderness: There is no abdominal tenderness. Hernia: No hernia is present. Genitourinary: Penis: Normal. Testes: Normal. Skin: General: Skin is warm. Neurological: Mental Status: He is alert. Assessment/Plan Assessment/Plan Diagnoses and all orders for this visit: Urinary frequency Comments: Patient will be sent fasting glucose was normal We will start empiric treatment with Bactrim given patient's age Advised to push fluids. He will be referred to urology Orders: - POCT urinalysis dipstick manually resulted - Culture, Urine, Routine; Futu re documented in this encounter Plan of Treatment Upcoming Encounters Date Type Department Care Team (Late st Contact Info) Description 12/12/2024 9:30 AM EDT Telemedicine [facility] MED & PEDS [address] [place] [address] Anson Asencio MD [address] [place] [address] Scheduled Orders Name Type Priority Associated Diagnoses Orde r Schedule Culture, Urine, Routine Microbiology Routine Urinary frequency Expected: 09/12/2024 (Approximate), Expires: 09/12/2025 Scheduled Referrals Name Type Priority Associated Diagnoses Orde r Schedule Referral to Urology Outpatient Referral Routine Urinary frequency Nocturia Expected: 09/12/2024 (Approximate), Expires: 09/12/2025 documented as of this encounter Procedures Procedure Name Priority Date/Time Associated Diagnosis Comments POCT URINALYSIS DIPSTICK Routine 09/12/2024 2:43 PM EDT Urinary frequency documented in this encounter Results * POCT urinalysis dipstick manually resulted [...] Appearance, UA clear QC Media Lot # Comment:[id number] Lot# Expiration Date Comment:01/29/2025 Urine 09/12/2024 2:43 PM EDT Elisa Richards MD POINT OF CARE TEST ENTER/ED IT ORDERABLES Final Result documented in this encounter Visit Diagnoses Diagnosis Urinary frequency- Primary Nocturia documented in this encounter Additional Health Concerns Assessment Noted Time PHQ-9 Depression Total Score: 0 05/22/19 8:54 AM EST documented as of this encounter Care Teams Applications Coordinator Relationship Specialty Start Date End Date Anson Asencio MD [address] [place] [address] PCP - General Internal Medicine 05/22/24 documented as of this encounter
--- OUTSIDE RECORDS SUMMARY | 2024-09-12 15:32 | XMS_ITS | Encounter Summary ---
Author Organization [employer] Address [address] [facility] [address]t [place] [address] Care Team Providers Care Senior Mortgage Underwriter Name Role Phone Anson Asencio MD Primary Care Prov ider Reason for Visit * Reason Onset Date Comments Nurse Triage 09/11/2024 Encounter Details Date Type Department Care Team (Late st Contact Info) Description 09/11/2024 Telephone [facility] [address] [place] [address] Anson Asencio MD [address] [place] [address] Nurse Triage Social History Tobacco Use Types Packs/Day Years [...] encounter Miscellaneous Notes * Telephone Encounter - Minnie Lr RN - 09/11/2024 2:37 PM EDT Called pt. Via [employer] marble finisher [employer]. Pt. States that he has been having urgency when he urinates and wants PCP to check his prostate. This has been going on x few months. Pt. States that sometimes he gets a burning sensation when he urinates. No blood in urine noted. No fever. Pt. Concerned about Prostate because he moved here a year ago from [facility] and has not had any testing on his prostate. Protocol Used: Urination Pain - Male (Adult) Protocol-Based Disposition: See in Office or Video Visit Today- Per Dr. Richards, Pt. Was booked [facility] on 09/12/24 at 220pm. Positive Triage Question: * All other males with painful urination, or patient wants to be seen * All higher-acuity triage questions were negative Care Advice Discussed: * Drink Extra Fluids * Telephone Encounter - Catarina Hopper - 09/11/2024 2:11 PM EDT Symptom: Urine Symptoms Outcome: Schedule an urgent appointment (within 4 hours) or talk to a nurse or provider soon Reason: Pain when passing urine (peeing) The caller accepted this outcome. [phone] kyrgyz documented in this encounter Plan of Treatment Upcoming Encounters Date Type Department Care Team (Late st Contact Info) Description 12/12/2024 9:30 AM EDT Telemedicine [facility] MED & PEDS [address] [place] [address] Anson Asencio MD [address] [place] [address] documented as of this encounter Visit Diagnoses Not on filedocumented in this encounter Additional Health Concerns Assessment Noted Time PHQ-9 Depression Total Score: 0 05/22/19 8:54 AM EST documented as of this encounter Care Teams Senior Mortgage Underwriter Relationship Specialty Start Date End Date Anson Asencio MD [address] [place] [address] PCP - General Internal Medicine 05/22/24 documented as of this encounter
--- OUTSIDE RECORDS SUMMARY | 2024-09-12 15:32 | XMS_ITS | Encounter Summary ---
Author Organization [employer] Address [address] [facility] 7t [place] [address] Care Team Providers Care Flare Stitcher Name Role Phone Anson Asencio MD Primary Care Prov ider Encounter Details Date Type Department Care Team (Latest Contact Info) Description 09/11/2024 8:30 AM EDT Telemedicine [facility] CHC MED & PEDS [address] [place], [place] [phone] Anson Asencio MD [address] [place] [address] Primary hypertension (Primary Dx); Combined arterial insufficiency and corporo-venous occlusive erectile dysfunction Social History Tobacco Use Types Packs/Day Years [...] Sign Reading Time Taken Comments Blood Pressure 132/81 09/11/2024 8:59 AM EDT Pulse - - Temperature - - Respiratory Rate - - Oxygen Saturation - - Inhaled Oxygen Concentration - - Weight - - Height - - Body Mass Index - - documented in this encounter Progress Notes * Anson Roy MD - 09/11/2024 8:30 AM EDT Subjective Patient ID: Eriberto Mullins is a 68 y.o. adult who presents for No chief complaint on file.. Hypertension This is a chronic problem. Pertinent negatives include no headaches, palpitations, peripheral edemaor shortness of breath. Review of Systems Respiratory: Negative for shortness of breath. Cardiovascular: Negative for palpitations. Neurological: Negative for headaches. Objective Physical Exam Neurological: General: No focal deficit present. Mental Status: He is oriented to person, place, and time. Psychiatric: Mood and Affect: Mood normal. Behavior: Behavior normal. Assessment/Plan Problem List Items Addressed This Visit Primary hypertension - Primary Controlled, keep low sodium diet and exercise as tolerated, keep bp log, follow up in 3 months Combined arterial insufficiency and corporo-venous occlusive erectile dysfunction Will start on cialis, risk vs benefits discussed, call back if not working or getting side effects documented in this encounter Miscellaneous Notes * Assessment & Plan Note - Anson Roy MD - 09/11/2024 9:06 AM EDTAssociated Problem(s): Combined arterial insufficiency and corporo-venous occlusive erectile dysfunction Will start on cialis, risk vs benefits discussed, call back if not working or getting side effects * Assessment & Plan Note - Anson Roy MD - 09/11/2024 9:05 AM EDTAssociated Problem(s): Primary hypertension Controlled, keep low sodium diet and exercise as tolerated, keep bp log, follow up in 3 months documented in this encounter Plan of Treatment Upcoming Encounters Date Type Department Care Team (Late st Contact Info) Description 12/12/2024 9:30 AM EDT Telemedicine [facility] MED & PEDS [address] [place] [address] Anson Asencio MD [address] [place] [address] documented as of this encounter Visit Diagnoses Diagnosis Primary hypertension- Primary Unspecified essential hypertension Combined arterial insufficiency and corporo-venous occlusive erectile dysfunction documented in this encounter Additional Health Concerns Assessment Noted Time PHQ-9 Depression Total Score: 0 05/22/19 8:54 AM EST documented as of this encounter Care Teams Flare Stitcher Relationship Specialty Start Date End Date Anson Asencio MD [address] [place] [address] PCP - General Internal Medicine 05/22/24 documented as of this encounter
--- OUTSIDE RECORDS SUMMARY | 2024-09-12 15:32 | XMS_ITS | Encounter Summary ---
Author Organization [employer] Address [address] [facility] 7t [place] [address] Care Team Providers Care Senior Java Software Developer Name Role Phone Anson Asencio MD Primary Care Prov ider Encounter Details Date Type Department Care Team (Latest Contact Info) Description 09/12/2024 Travel Social History Tobacco Use Types Packs/Day [...] 12/12/2024 9:30 AM EDT Telemedicine [facility] MED & PEDS [address] [place] [address] Anson Asencio MD [address] [place] [address] documented as of this encounter Visit Diagnoses Not on filedocumented in this encounter Additional Health Concerns Assessment Noted Time PHQ-9 Depression Total Score: 0 05/22/19 8:54 AM EST documented as of this encounter Care Teams Senior Java Software Developer Relationship Specialty Start Date End Date Anson Asencio MD [address] [place] [address] PCP - General Internal Medicine 05/22/24 documented as of this encounter
--- OUTSIDE RECORDS SUMMARY | 2024-09-12 15:32 | XMS_ITS | Encounter Summary ---
Author Organization [employer] Address [address] [facility] 7t [place] [address] Care Team Providers Care Supervisor Case Loading Name Role Phone Anson Asencio MD Primary Care Prov ider Encounter Details Date Type Department Care Team (Latest Contact Info) Description 09/11/2024 Travel Social History Tobacco Use Types Packs/Day [...] Info) Description 12/12/2024 9:30 AM EDT Telemedicine [facility] MED & PEDS [address] [place] [address] Anson Asencio MD [address] [place] [address] documented as of this encounter Visit Diagnoses Not on filedocumented in this encounter Additional Health Concerns Assessment Noted Time PHQ-9 Depression Total Score: 0 05/22/19 8:54 AM EST documented as of this encounter Care Teams Supervisor Case Loading Relationship Specialty Start Date End Date Anson Asencio MD [address] [place] [address] PCP - General Internal Medicine 05/22/24 documented as of this encounter
== END 2024-09-12 15:30 | disposition home or self-care (01) ==
LOC: HO.CHCLNP 15:29
PROVIDERS: Visit Provider Internal Medicine
DX: R35.0 Frequency of micturition (principal)
CPT/HCPCS: 87086

== ENCOUNTER 2024-10-26 09:57 | Outpatient (REF) | payer MEDICAID, SELFPAY ==
--- OUTSIDE RECORDS SUMMARY | 2024-10-26 10:32 | XMS_ITS | Encounter Summary ---
Author Organization [employer] Address [address] [facility] 7t [place] [address] Care Team Providers Care Correction Officer Head Name Role Phone Anson Asencio MD Primary Care Prov ider Encounter Details Date Type Department Care Team ([facility] st Contact Info) Description 09/13/2024 Results Follow-Up [facility] CHC MED & PEDS [address] [place], [place] [phone] Elisa Richards MD [address] [place] [address] POCT urinalysis dipstick manually resulted, Culture, Urine, Routine Social History Tobacco Use Types Packs/Day Years [...] Info) Description 12/12/2024 9:30 AM EDT Telemedicine [facility] CHC MED & PEDS [address] [place] [address] Anson Asencio MD [address] [place] [address] 03/11/2025 9:15 AM EST Office Visit [facility] OPTOMETRY [address] [place] [address] Tarka, Nanette, OD [address] [place] [address] documented as of this encounter Visit Diagnoses Not on filedocumented in this encounter Additional Health Concerns Assessment Noted Time PHQ-9 Depression Total Score: 0 05/22/19 8:54 AM EST documented as of this encounter Care Teams Correction Officer Head Relationship Specialty Start Date End Date Anson Asencio MD [address] [place] [address] PCP - General Internal Medicine 05/22/24 documented as of this encounter
== END 2024-10-26 09:58 | disposition home or self-care (01) ==
LOC: HO.HHCX 09:57
PROVIDERS: PCP Internal Medicine; Visit Provider Internal Medicine
DX: Z13.89 Encounter for screening for other disorder (principal)

== ENCOUNTER 2024-10-26 10:10 | Outpatient (REF) | payer MEDICAID, SELFPAY ==
--- NOTE | ~2024-10-26 | XR_ITS ---
EXAMINATION: XR ELBOW, RIGHT CLINICAL INFORMATION: Chronic right elbow pain after trauma COMPARISON: None available. TECHNIQUE: AP, lateral, and oblique views of the right elbow. FINDINGS: No fracture, dislocation, or suspicious bone lesion. There is normal alignment. Joint spaces are preserved. There is a moderate-sized olecranon spur present. There is minimal enthesophyte pathic spurring of both epicondyles. There is no evidence of joint effusion. Normal soft tissues. XR/XR elbow RT min 3V IMPRESSION: 1. No acute abnormality of the right elbow. 2. Moderate size olecranon spur. 3. Minimal enthesopathic spurring of the epicondyles. Electronically signed by: Deny Celestin MD 10/26/2024 10:24 AM EDT
== END 2024-10-26 10:11 | disposition home or self-care (01) ==
LOC: HO.HHCX 10:10
PROVIDERS: Visit Provider Internal Medicine
DX: M25.521 Pain in right elbow (principal); G89.29 Other chronic pain
CPT/HCPCS: 73080

== ENCOUNTER → 2024-10-26 10:11 | Outpatient (BNV) | payer MEDICAID, SELFPAY | PROVIDERS: Visit Provider Radiology Diagnostic Radiology | DX: M25.721 Osteophyte, right elbow (principal) | CPT/HCPCS: 73080 ==

== ENCOUNTER 2024-12-07 08:26 | Outpatient (REF) | payer MEDICAID, SELFPAY ==
--- OUTSIDE RECORDS SUMMARY | 2024-12-06 11:15 | XMS_ITS | Encounter Summary ---
Author Organization [employer] Address [address] [facility] 7t [place] [address] Care Team Providers Care Director Of Corporate Communications Name Role Phone Anson Asencio MD Primary Care Prov ider Encounter Details Date Type Department Care Team (Latest Contact Info) Description 12/06/2024 11:15 AM EDT Office Visit [facility] CHC MED & PEDS [address] [place], [place] [phone] Anson Asencio MD [address] [place] [address] Mixed hyperlipidemia (Primary Dx); Dietary counseling; Exercise counseling; Primary hypertension Social History Tobacco Use Types Packs/Day Years [...] your housing situation today? I have desean sing 05/22/[address] you li [...] Sign Reading Time Taken Comments Blood Pressure 131/77 12/06/2024 11:06 AM EDT Pulse 65 12/06/2024 11:06 AM EDT Temperature 37.1 C (98.7 F) 12/06/2024 11:06 AM EDT Respiratory Rate 16 12/06/2024 11:06 AM EDT Oxygen Saturation - - Inhaled Oxygen Concentration - - Weight 84.8 kg (187 lb) 12/06/2024 11:06 AM EDT Height 172.7 cm (5' 8 ) 12/06/2024 11:06 AM EDT Body Mass Index 28.43 12/06/2024 11:06 AM EDT documented in this encounter Progress Notes * Anson Roy MD - 12/06/2024 11:15 AM EDT Subjective Patient ID: Eriberto Mullins is a 69 y.o. adult who presents for No chief complaint on file.. Hypertension This is a chronic problem. The problem is controlled. Pertinent negatives include no chest pain, headaches, palpitations, peripheral edema or shortness of breath. Review of Systems Respiratory: Negative for shortness of breath. Cardiovascular: Negative for chest pain and palpitations. Neurological: Negative for headaches. Objective Physical Exam Constitutional: Appearance: Normal appearance. Cardiovascular: Rate and Rhythm: Normal rate. Heart sounds: No murmur heard. Pulmonary: Effort: Pulmonary effort is normal. No respiratory distress. Breath sounds: No stridor. No wheezing or rhonchi. Neurological: General: No focal deficit present. Mental Status: He is alert and oriented to person, place, and time. Psychiatric: Mood and Affect: Mood normal. Behavior: Behavior normal. Assessment/Plan Problem List Items Addressed This Visit Primary hypertension Controlled, keep low sodium diet and exercise as tolerated, keep bp log, follow up in 3 months Other Visit Diagnoses Mixed hyperlipidemia - Primary Relevant Orders Lipid Panel, Standard Dietary counseling Exercise counseling documented in this encounter Miscellaneous Notes * Assessment & Plan Note - Anson Roy MD - 12/06/2024 12:03 PM EDTAssociated Problem(s): Primary hypertension Controlled, keep low sodium diet and exercise as tolerated, keep bp log, follow up in 3 months documented in this encounter Plan of Treatment Upcoming Encounters Date Type Department Care Team (Late st Contact Info) Description 03/11/2025 9:15 AM EST Office Visit [facility] OPTOMETRY [address] [place] [address] TarkaNanette, OD [address] [place] [address] Scheduled Orders Name Type Priority Associated Diagnoses Orde r Schedule Lipid Panel, Standard Lab Routine Mixed hyperlipidemia Expected: 12/06/2024 (Approximate), Expires: 12/06/2025 documented as of this encounter Visit Diagnoses Diagnosis Mixed hyperlipidemia- Primary Dietary counseling Dietary surveillance and counseling Exercise counseling Primary hypertension Unspecified essential hypertension documented in this encounter Additional Health Concerns Assessment Noted Time PHQ-9 Depression Total Score: 0 05/22/19 25 8:54 AM EST documented as of this encounter Care Teams Director Of Corporate Communications Relationship Specialty Start Date End Date Anson Asencio MD [address] [place] [address] PCP - General Internal Medicine 05/22/24 documented as of this encounter
[2024-12-07 15:38] LABS: Cholesterol 251 mg/dL (<200); HDL Cholesterol 50 mg/dL (>40); Triglycerides 149 mg/dL (<150)
== END 2024-12-07 08:27 | disposition home or self-care (01) ==
LOC: HO.CHCLDS 08:26
PROVIDERS: Visit Provider Internal Medicine
DX: E78.2 Mixed hyperlipidemia (principal)
CPT/HCPCS: 36415; 80061

== ENCOUNTER 2025-04-18 09:04 | Outpatient (REF) | payer MEDICAID, SELFPAY ==
[2025-04-18 15:55] LABS: Alanine Aminotransferase 21 U/L (0-40); Albumin Level 4.5 g/dL (3.5-5.0); Alkaline Phosphatase 63 U/L (39-117); Anion Gap 10 (12-20); Aspartate Amino Transferase 31 U/L (5-37); Blood Urea Nitrogen 20 mg/dL (9-16); Calcium 9.2 mg/dL (8.4-10.2); Carbon Dioxide 28 mmol/L (22-29); Chloride 105 mmol/L (96-108); Cholesterol 252 mg/dL (<200); Estimated Glomerular Filt Rate 58; HDL Cholesterol 58 mg/dL (>40); Potassium 4.0 mmol/L (3.3-5.1); Sodium 139 mmol/L (135-145); Total Protein 6.8 g/dL (6.5-8.0); Triglycerides 135 mg/dL (<150)
== END 2025-04-18 09:05 | disposition home or self-care (01) ==
LOC: HO.CHCLDS 09:04
PROVIDERS: Visit Provider Internal Medicine
DX: E78.2 Mixed hyperlipidemia (principal)
CPT/HCPCS: 36415; 80053; 80061